=== PATIENT | male | born 1960 | race Caucasian/White ===

== ENCOUNTER 2016-09-26 19:20 | Emergency (ER) | payer BC ==
[~2016-09-26] VITALS: Ht 188 cm; Wt 122.5 kg
[2016-09-26 19:23] VITALS: BP 117/74; PULSE 70; RESP 18; TEMP 98.4; O2SAT 95
[2016-09-26] MEDS ORDERED: LISI-519 PO (19:30)
[2016-09-26] MEDS ORDERED: AMOX875T PO (19:45)
--- NOTE | 2016-09-26 19:46 | PD ---
HPI Chief Complaint: ENT Complaint Time Seen by Provider: 19:20 Travel History International Travel<30 days: No Contact w/Intl Traveler<30days: No Traveled to known affect area: No History of Present Illness HPI 56-year-old male presents emergency department for bilateral ear pain 2 days. Patient reports history of frequent ear infections over the past year. He reports he used ciprofloxacin otic drops from a previous infection with no relief. Severity 6 out of 10. He denies fevers, chills, headache. PFSH Past Medical History Medical History: Denies Significant Hx Cardiovascular Problems: Yes (HTN) Hypertension: Yes Tetanus Vaccination: < 5 Years Influenza Vaccination: No Past Surgical History Surgical History: No Previous Surgery Social History Alcohol Use: Yes (Occ.) Tobacco Use: No Substance Use: No Allergies-Medications (Allergen,Severity, Reaction): Coded Allergies: Codeine (Verified Adverse Reaction, Severe, N/V, 09/26/16) Reported Meds & Prescriptions Reported Meds & Active Scripts Active Reported Lisinopril 5 Mg Tab 5 Mg PO DAILY Review of Systems Except as stated in HPI: all other systems reviewed are Neg Physical Exam Narrative GENERAL: Well-nourished, well-developed patient. SKIN: Focused skin assessment warm/dry. HEAD: Normocephalic. EYES: No scleral icterus. No injection or drainage. EARS: Bilateral TM erythema and bulging. No perforation. No canal swelling or drainage. NECK: Supple, trachea midline. No JVD or lymphadenopathy. CARDIOVASCULAR: Regular rate and rhythm without murmurs, gallops, or rubs. RESPIRATORY: Breath sounds equal bilaterally. No accessory muscle use. GASTROINTESTINAL: Abdomen soft, non-tender, nondistended. MUSCULOSKELETAL: No cyanosis, or edema. Data Data Last Documented VS Vital Signs Date Time Temp Pulse Resp B/P Pulse Ox O2 Delivery O2 Flow Rate FiO2 09/26/16 19:23 98.4 70 18 117/74 95 MDM Medical Decision Making Medical Screen Exam Complete: Yes Emergency Medical Condition: Yes Differential Diagnosis Otitis media, serous otitis, otitis externa, Narrative Course 56-year-old male with bilateral ear pain 2 days. Patient reports history of multiple ear infections over the last year. Last ear infection was treated 6 months prior. On exam he has bilateral TM bulging and erythema. Patient will be treated for acute otitis media. Diagnosis Primary Impression: Bilateral otitis media Qualified Code: H66.93 - Bilateral otitis media, unspecified chronicity, unspecified otitis media type Referrals: Ear / Nose / Throat Specialist Scripts Amoxicillin 875 Mg [id number] Mg PO BID #20 TAB Ref 0 Prov:Johanny Mcintosh 09/26/16 Disposition: 01 DISCHARGE HOME Condition: Stable Johanny Mcintosh Sep 26, 2016 19:46
[2016-09-26] MEDS ORDERED: KETOROLAC TROMETHAMINE 60 MG/2 ML (IM) VIAL IM ONE (20:00)
== END 2016-09-26 20:00 | disposition home or self-care (01) ==
LOC: PHEFT 19:20
DX: H66.93 Otitis media, unspecified, bilateral (principal); I10 Essential (primary) hypertension
CPT/HCPCS: 96372; 99284; J1885